=== PATIENT | female | born 1970 | race African-American/Black ===

== ENCOUNTER 2017-05-17 06:03 | Inpatient (IN) ==
[2017-05-15 14:29] LABS: Basophils % 0.5 % (0.0-0.8); Eosinophils % 0.5 % (0.00-10.9); Hemoglobin 12.8 GM/DL (12.0-16.0); Lymphocytes # 1.5 10*3/uL (1.4-4.0); Lymphocytes % 39.1 % (21.3-54.2); Mean Corpuscular HGB Conc 34.6 GM/DL (32-36); Mean Corpuscular Hemoglobin 33 PG (27-34); Mean Corpuscular Volume 95.1 FL (87-102); Mean Platelet Volume 10.5 FL (9.6-12.0); Monocytes # 0.2 10*3/uL (0.11-0.8); Monocytes % 6.5 % (1.7-12.7); Neutrophils % 53.4 % (38.7-73.9); Platelet Count 255 T/CUMM (130-400); Red Blood Count 3.89 MC/CUMM (3.8-5.5); Red Cell Distribution Width 11.9 % (9.3-17.3); White Blood Count 3.7 T/CUMM (4-12)
[2017-05-15 15:09] LABS: Albumin 4.3 G/DL (3.4-5.0); Bilirubin,Total 0.4 MG/DL (0.2-1.0); Calcium 9.5 MG/DL (8.5-10.1); Osmolality,Calculated 278.3 MOS/KG (273-304); Potassium 4.2 MMOL/L (3.5-5.1); Risk Ratio 2.11; Total Protein 7.3 G/DL (6.4-8.3); VLDL CHOLESTEROL 9.8 MG/DL
[2017-05-15 15:21] LABS: Amorphous Crystals,Urine Occasional /HPF (Few); Apearance,Urine CLOUDY (Clear); Bacteria,Urine Few /HPF (Few); Bilirubin,Urine Negative (Negative); Blood, Urine Negative (Negative); Glucose,Urine (UA) Negative (Negative); Ketones,Urine Negative (Negative); Mucus,Urine Occasional /LPF (Occasional); Nitrite,Urine Negative (Negative); Protein,Urine Negative; Squamous Epithelial Cell,Urine Moderate /HPF (0-10); Urine Color Yellow (Yellow); Urine Specific Gravity 1.014 (1.001-1.035); Urine Urobilinogen < 2.0 EU/DL (0.2-1.0); WBC,Urine 3 /HPF (0-6)
[2017-05-15 15:57] LABS: HIV Antigen/Antibody Result Nonreactive (Nonreactive)
[~2017-05-17 06:03] MED LIST: AMPICILLIN/SULBACTAM 3,000 MG in SODIUM CHLORIDE 0.9% 100 ML IV ONE
[2017-05-17] MEDS: LACTATED RINGERS 1,000 ML IV SCH ×4 (06:40→21:08)
[2017-05-17] MEDS ORDERED: AMPICILLIN/SULBACTAM 3,000 MG VIAL ONE (06:46)
[2017-05-17] MEDS ORDERED: SEVOFLURANE 1 UNIT/15 MINUTE INH ONE (10:18)
[2017-05-17] MEDS ORDERED: MIDAZOLAM 2 MG/2 ML VIAL ONE (10:18)
[2017-05-17] MEDS ORDERED: PROPOFOL 200 MG/20 ML VIAL IV ONE (10:18)
[2017-05-17] MEDS ORDERED: fentaNYL 100 MCG/2 ML VIAL ONE (10:19)
[2017-05-17] MEDS ORDERED: LACTATED RINGERS 1,000 ML IV ONE (10:19)
[2017-05-17] MEDS ORDERED: ROCURONIUM 100 MG/10 ML VIAL IV ONE (10:19)
[2017-05-17] MEDS ORDERED: ACETAMINOPHEN 1,000 MG/100 ML VIAL IV ONE (10:19)
[2017-05-17] MEDS ORDERED: KETOROLAC 30 MG/1 ML VIAL ONE (10:19)
[2017-05-17] MEDS ORDERED: ONDANSETRON 4 MG/2 ML VIAL ONE (10:19)
[2017-05-17] MEDS ORDERED: ONDANSETRON 4 MG/2 ML VIAL IV PRN ×3 (10:31→11:28)
[2017-05-17 10:33] LABS: Amorphous Crystals,Urine Few /HPF (Few); Apearance,Urine Slightly Hazy (Clear); Bacteria,Urine Occasional /HPF (Few); Bilirubin,Urine Negative (Negative); Blood, Urine Negative (Negative); Glucose,Urine (UA) Negative (Negative); Ketones,Urine Negative (Negative); Mucus,Urine Occasional /LPF (Occasional); Nitrite,Urine Negative (Negative); Protein,Urine Negative; RBC,Urine <1 /HPF (0-4); Squamous Epithelial Cell,Urine Occasional /HPF (0-10); Urine Color Yellow (Yellow); Urine Specific Gravity 1.009 (1.001-1.035); Urine Urobilinogen < 2.0 EU/DL (0.2-1.0); WBC,Urine <1 /HPF (0-6)
[2017-05-17] MEDS: HYDROmorphone 2 MG/1 ML VIAL IV PRN ×4 (10:35→10:50)
[2017-05-17] MEDS ORDERED: ACETAMINOPHEN 325 MG TABLET PO PRN ×2 (10:37→11:28)
[2017-05-17] MEDS ORDERED: IBUPROFEN 800 MG TABLET PO PRN ×2 (10:37→11:28)
[2017-05-17] MEDS ORDERED: NALOXONE 0.4 MG/ML VIAL IV PRN (11:28)
[2017-05-17] MEDS ORDERED: BENZOCAINE/MENTHOL LOZENGE 18/BOX PO PRN ×2 (11:28→11:30)
[2017-05-17] MEDS ORDERED: LACTATED RINGERS 1,000 ML IV SCH (11:28)
[2017-05-17] MEDS ORDERED: HYDROmorphone PCA 30 MG/30 ML SYRINGE IV SCH (11:28)
[2017-05-17] MEDS ORDERED: BISACODYL 10 MG SUPP RECTAL PRN ×2 (11:28→11:30)
[2017-05-17] MEDS ORDERED: MAGNESIUM HYDROXIDE SUSP 30 ML UDCUP PO PRN (11:30)
[2017-05-17] MEDS ORDERED: DOCUSATE SODIUM 100 MG CAPSULE PO PRN (11:30)
[2017-05-17] MEDS ORDERED: HYDROmorphone PCA 30 MG/30 ML SYRINGE IV ONE (11:35)
[2017-05-17] MEDS: CEFAZOLIN IV SCH (16:10)
[2017-05-17] MEDS ORDERED: ceFAZolin 1,000 MG in SYRINGE 1 EACH IV SCH (16:31)
[2017-05-17 19:37] LABS: Basophils % 0.1 % (0.0-0.8); Hematocrit 30.4 VOL% (35.7-47.0); Hemoglobin 10.6 GM/DL (12.0-16.0); Immature Granulocytes % 0.3 %; Immature Granulocytes Absolute 0.03 #; Lymphocytes # 0.4 10*3/uL (1.4-4.0); Lymphocytes % 3.1 % (21.3-54.2); Mean Corpuscular HGB Conc 34.9 GM/DL (32-36); Mean Corpuscular Hemoglobin 33 PG (27-34); Mean Corpuscular Volume 95.3 FL (87-102); Mean Platelet Volume 10.6 FL (9.6-12.0); Monocytes # 0.3 10*3/uL (0.11-0.8); Monocytes % 2.8 % (1.7-12.7); Neutrophils # 11.1 10*3/uL (1.4-7.4); Neutrophils % 93.7 % (38.7-73.9); Platelet Count 206 T/CUMM (130-400); Red Blood Count 3.19 MC/CUMM (3.8-5.5); Red Cell Distribution Width 11.6 % (9.3-17.3); White Blood Count 11.8 T/CUMM (4-12)
[2017-05-17] MEDS: SIMETHICONE CHEW 80 MG TABLET PO PRN (21:08)
[2017-05-17 21:15] LABS: Band Neutrophils 1 % (0-10); Lymphocytes 3 % (20-55); Platelet Estimate Adequate; Segmented Neutrophils 95 % (50-85); Total Cells Counted 100
[2017-05-18] MEDS: CEFAZOLIN IV SCH (00:58)
[2017-05-18] MEDS ORDERED: METOCLOPRAMIDE 10 MG/2 ML VIAL IV SCH (07:30)
[2017-05-18 08:05] LABS: Basophils % 0.2 % (0.0-0.8); Hematocrit 28.7 VOL% (35.7-47.0); Hemoglobin 9.8 GM/DL (12.0-16.0); Immature Granulocytes % 0.3 %; Immature Granulocytes Absolute 0.02 #; Lymphocytes # 0.7 10*3/uL (1.4-4.0); Lymphocytes % 11.4 % (21.3-54.2); Mean Corpuscular HGB Conc 34.1 GM/DL (32-36); Mean Corpuscular Hemoglobin 33 PG (27-34); Mean Platelet Volume 11.4 FL (9.6-12.0); Monocytes # 0.4 10*3/uL (0.11-0.8); Monocytes % 6.1 % (1.7-12.7); Neutrophils # 5.3 10*3/uL (1.4-7.4); Platelet Count 184 T/CUMM (130-400); Red Blood Count 2.99 MC/CUMM (3.8-5.5); Red Cell Distribution Width 11.7 % (9.3-17.3); White Blood Count 6.4 T/CUMM (4-12)
[2017-05-18] MEDS: DOCUSATE SODIUM 100 MG CAPSULE PO PRN ×2 (08:24→20:40)
[2017-05-18] MEDS: MAGNESIUM HYDROXIDE SUSP 30 ML UDCUP PO PRN ×2 (08:24→20:41)
[2017-05-18] MEDS: SIMETHICONE CHEW 80 MG TABLET PO PRN ×2 (08:24→20:41)
[2017-05-18] MEDS ORDERED: FERROUS SULFATE 325 MG TABLET PO SCH (09:00)
[2017-05-18] MEDS: LACTATED RINGERS 1,000 ML IV SCH (09:00)
[2017-05-18] MEDS: FERROUS SULFATE 325 MG TABLET PO SCH (20:40)
[2017-05-19] MEDS ORDERED: MAGNESIUM CITRATE 300 ML BOTTLE PO PRN (02:44)
[2017-05-19 08:38] VITALS: BP 113/69
[2017-05-19] MEDS: FERROUS SULFATE 325 MG TABLET PO SCH (08:54)
[2017-05-19] MEDS: DOCUSATE SODIUM 100 MG CAPSULE PO PRN (08:54)
== END 2017-05-19 12:55 | disposition home or self-care (01) | DRG 743 ==
LOC: N.OR 06:03 → N.SDSINP 06:04 → N.OB 11:18
PROVIDERS: ADMIT Obstetrics & Gynecology; ATTEND Obstetrics & Gynecology